=== PATIENT | female | born 1995 | race Two or more races ===

== ENCOUNTER 2018-01-17 01:20 | Emergency (ER) | payer SELFPAY ==
[~2018-01-17] VITALS: Ht 160 cm; Wt 163.3 kg
[2018-01-17 01:39] VITALS: BP 130/70
[2018-01-17] MEDS ORDERED: IV NORMAL SALINE 1000ML BAG 1,000 ML IV ONE (02:30)
[2018-01-17 03:09] LABS: CALCIUM 9.2 mg/dL (8.5-10.1); GFR 69.3
--- NOTE | 2018-01-17 03:46 | PHYS DOC ---
Past Medical History Past Medical History: Anxiety, Asthma, Other Additional Past Medical Histor: Seasonal Allergies Past Surgical History: No Surgical History Alcohol Use: None Drug Use: None Adult General Chief Complaint Chief Complaint: CHEST PAIN HPI HPI Patient is a 23 year old female who presents with chest pain. The patient had onset of sternal chest pain about one hour prior to presentation. She was at rest when the pain started. Pain is described to be sharp. There are no aggravating or alleviating factors. She has not had a recent cough, fever, chills. Patient does have a known history of anxiety but states this does not normally cause her to have chest pain. She has no recent travel. She does not take control pills. No significant family hx of CAD. Review of Systems Review of Systems Constitutional: Denies fever or chills [] Eyes: Denies change in visual acuity, redness, or eye pain [] HENT: Denies nasal congestion or sore throat [] Respiratory: Denies cough or shortness of breath [] Cardiovascular: No additional information not addressed in HPI [] GI: Denies abdominal pain, nausea, vomiting, bloody stools or diarrhea [] : Denies dysuria or hematuria [] Musculoskeletal: Denies back pain or joint pain [] Integument: Denies rash or skin lesions [] Neurologic: Denies headache, focal weakness or sensory changes [] Endocrine: Denies polyuria or polydipsia [] All other systems were reviewed and found to be within normal limits, except as documented in this note. Current Medications Current Medications Current Medications Medications (Trade) Dose Ordered Sig/Phylicia Start Time Stop Time Status Last Admin Dose Admin Info (CONTRAST GIVEN -- Rx MONITORING) 1 each PRN DAILY PRN 01/17/18 04:15 01/19/18 04:14 Iohexol (Omnipaque 300 Mg/ml) 75 ml 1X ONCE 01/17/18 04:30 01/17/18 04:31 DC Lorazepam (Ativan) 0.5 mg 1X ONCE 01/17/18 02:30 01/17/18 02:31 DC 01/17/18 02:34 0.5 MG Sodium Chloride 1,000 ml @ 1,000 mls/hr 1X ONCE 01/17/18 02:30 01/17/18 03:29 DC 01/17/18 02:33 1,000 MLS/HR Allergies Allergies Allergies Coded Allergies Type Severity Reaction Last Updated Verified No Known Drug Allergies 06/10/13 No Physical Exam Physical Exam Constitutional: Well developed, well nourished, no acute distress, non-toxic appearance HENT: Normocephalic, atraumatic, bilateral external ears normal Neck: Normal range of motion Cardiovascular: regular tachy rhythm. No murmur Lungs & Thorax: Bilateral breath sounds clear to auscultation Abdomen: Bowel sounds normal, soft Skin: Warm, dry Back: No tenderness, no CVA tenderness. Extremities: No tenderness Neurologic: Alert and oriented X 3 Psychologic: Affect normal Current Patient Data Vital Signs Vital Signs Date Time Temp Pulse Resp B/P (MAP) Pulse Ox O2 Delivery O2 Flow Rate FiO2 01/17/18 01:39 98.6 102 18 130/70 (90) 97 Room Air 98.6 Lab Values Laboratory Tests Test 01/17/18 02:24 D-Dimer (Rosana) 0.60 ug/mlFEU (0.00-0.50) H Sodium Level 140 mmol/L (136-145) Potassium Level 4.0 mmol/L (3.5-5.1) Chloride Level 105 mmol/L (98-107) Carbon Dioxide Level 26 mmol/L (21-32) Anion Gap 9 (6-14) Blood Urea Nitrogen 18 mg/dL (7-20) Creatinine 1.0 mg/dL (0.6-1.0) Estimated GFR (Cockcroft-Gault) 69.3 Glucose Level 148 mg/dL (70-99) H Calcium Level 9.2 mg/dL (8.5-10.1) Troponin I Quantitative < 0.017 ng/mL (0.000-0.055) Laboratory Tests 01/17/18 02:24 EKG EKG No STEMI Interpretation Time: 01:50 Radiology/Procedures Radiology/Procedures [] Course & Med Decision Making Course & Med Decision Making Pertinent Labs and Imaging studies reviewed. (See chart for details) Patient is seen and examined in the emergency department. She has symptoms that are most concerning for anxiety. That said, she had sudden onset of pain. She is mildly tachycardic in the ER. She does not have dyspnea. Her EKG is nonacute although lead 3 does have inverted T waves. In the ER, the plan is to give medication for anxiety. We'll check a d-dimer. 03:40: dimer is elevated CTA is ordered. 05:50: Patient presented primarily with anxiety. Because she was having chest pain, d-dimer was completed. D-dimer was elevated. Attempt was made to do CT angiogram of the chest but the patient's IV infiltrated and she received the entire contrast load in the subcutaneous tissue of her right arm. Subsequent to this, VQ scan was ordered. VQ scan is pending at this time. Patient was given a small dose of Ativan which did entirely relieve her symptoms shortly after arrival. Transfer care to Dr. Power. (please f/u on VQ scan and dispo accordingly. thank you) Shalini Disclaimer Shalini Disclaimer This electronic medical record was generated, in whole or in part, using a voice recognition dictation system. Departure Departure Referrals: NO PCP (PCP) MARY VALLE DO Jan 17, 2018 03:46
[2018-01-17] MEDS ORDERED: CONTRAST GIVEN. MC PRN (04:15)
[2018-01-17] MEDS ORDERED: IOHEXOL 300 MG/ML 100ML VIAL. IV ONE (04:30)
--- NOTE | 2018-01-17 07:04 | RAD ---
Indication: Chest pain for one day. Elevated d-dimer. Tachycardia. TECHNIQUE: Nuclear medicine VQ scan with 16.8 mCi of xenon-133 for ventilation scan and 6.5 mCi of technetium 99m MAA for perfusion scan. COMPARISON: None FINDINGS: Homogeneous distribution of ventilation agent is seen with appropriate washout in and washout. Homogeneous distribution of perfusion agent is seen without ventilation/perfusion mismatch or large or moderate wedge-shaped areas of photopenia. IMPRESSION: Low probability VQ scan. Electronically signed by: Yordan Nieto DO (01/17/2018 7:00 AM) [id number]
--- NOTE | 2018-01-17 08:20 | RAD ---
Chest, PA and Lateral: Technique: PA and lateral views of the chest were obtained. History: Chest pain. Comparison: None. Findings: The heart and pulmonary vasculature appear within normal limits. Minimal bibasilar lung atelectasis.. The pleural margins are clear. Impression: Minimal bibasilar lung atelectasis.. Electronically signed by: Diogenes Anthony MD (01/17/2018 8:16 AM) [facility]
--- NOTE | 2018-01-17 09:29 | EKG ---
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
== END 2018-01-17 07:52 | disposition home or self-care (01) ==
LOC: ER 01:20
DX: R07.89 Other chest pain (principal); R00.0 Tachycardia, unspecified; F41.9 Anxiety disorder, unspecified; J45.909 Unspecified asthma, uncomplicated
CPT/HCPCS: 36415; 71046; 78582; 80048; 84484; 85379; 93005; 96374; 99285; A9540; A9558; J2060; J7030